=== PATIENT | female | born 1950 | race Caucasian/White ===

== ENCOUNTER 2018-07-06 12:48 | Emergency (ER) | payer MEDICARE, OTHER ==
[~2018-07-06] VITALS: Ht 160 cm; Wt 65.0 kg
[2018-07-06] MEDS ORDERED: AMLODIPINE5 MG PO (13:15)
[2018-07-06] MEDS ORDERED: LISINOPRIL20 MG PO (13:15)
[2018-07-06] MEDS ORDERED: CALCIUM + D PO (13:16)
[2018-07-06] MEDS ORDERED: FLEXERIL PO (15:21)
[2018-07-06] MEDS ORDERED: TORADOL PO (15:21)
[2018-07-06 15:30] VITALS: BP 155/87
== END 2018-07-06 15:30 | disposition home or self-care (01) ==
LOC: ED 12:48
DX: R07.89 Other chest pain (principal); I10 Essential (primary) hypertension

== ENCOUNTER 2024-04-12 01:02 | Emergency (ER) | payer MEDICARE, MEDICAID ==
[~2024-04-12] VITALS: Ht 160 cm; Wt 79.0 kg
[~2024-04-12 01:02] MED LIST: AMLODIPINE5 MG PO; CALCIUM + D PO; FLEXERIL PO; LISINOPRIL20 MG PO; TORADOL PO; TRAMADOL HYDROC50 M1 PO; [UNRECOGNIZED DRUG - CODE] IM
[2024-04-12 01:38] VITALS: BP 132/70
[2024-04-12 02:00] VITALS: BP 115/65
[2024-04-12 02:23] LABS: BASO% 0.7 % (0-3); EOS% 17.6 % (0-8); HEMATOCRIT 35.1 % (37.0-47.0); HEMOGLOBIN 11.6 g/dl (12.0-16.0); IMMATURE GRANULOCYTES 0.3 % (0.0-5.0); LYMPH% 15.6 % (15-41); MEAN CELL VOLUME 95.1 fL CALC (80.0-100.0); MEAN CORPUSCULAR HGB 31.4 pG CALC (26.0-32.0); MONO% 8.5 % (2-13); NEUT# 5.14 thou/uL (2.00-7.15); NEUT% 57.3 % (42-76); RED BLOOD COUNT 3.69 mill/uL (4.20-5.60); RED CELL DISTRI WIDTH 13.5 % (11.5-15.5)
[2024-04-12 02:25] LABS: URINE BILIRUBIN - DIPSTICK Negative (NEGATIVE); URINE BLOOD DIPSTICK Small (NEGATIVE); URINE CLARITY Slightly Cloudy; URINE GLUCOSE - DIPSTICK Negative (NEGATIVE); URINE KETONE Negative (NEGATIVE); URINE LEUK ESTERASE Trace (Negative); URINE NITRITE - DIPSTICK Negative (Negative); URINE PH 5.5 (4.5-8.0); URINE PROTEIN - DIPSTICK Negative (NEG-TRACE); URINE SPECIFIC GRAVITY <=1.005; URINE UROBILINOGEN - DIPSTICK 0.2 E.U./dL (0.2)
[2024-04-12] MEDS ORDERED: SYNTHROID150 MCG PO (02:27)
[2024-04-12 02:28] LABS: URINE COLOR Yellow
[2024-04-12] MEDS ORDERED: CENTRUM ADULTS1 TAB (02:28)
[2024-04-12 02:31] LABS: URINE BACTERIA MANY hpf; URINE MUCUS RARE hpf (NONE-FEW); URINE SQUAMOUS EPITHELIAL CELL MODERATE EPI/hpf (0-FEW); URINE WBC 0-2 WBC/hpf (0-5)
[2024-04-12 02:36] LABS: BILIRUBIN, TOTAL 0.4 mg/dL (0.02-1.3); CREATININE 1.6 mg/dL (0.5-1.0); POTASSIUM 4.5 mmol/l (3.5-5.1); TOTAL PROTEIN 6.4 g/dL (6.3-8.2)
[2024-04-12 02:37] LABS: ALBUMIN 3.5 g/dL (3.2-5.0)
[2024-04-12] MEDS ORDERED: DOCUSATE SODIUM 100 MG/CAP PO ONE (04:05)
[2024-04-12] MEDS ORDERED: GOLYTELY PO (04:06)
[2024-04-12 04:30] VITALS: BP 115/60
== END 2024-04-12 04:30 | disposition home or self-care (01) ==
LOC: ED 01:02
PROVIDERS: Emergency Medicine
DX: K59.00 Constipation, unspecified (principal); I10 Essential (primary) hypertension; Z20.822 Contact with and (suspected) exposure to COVID-19